=== PATIENT | male | born 1965 | race Caucasian/White ===

== ENCOUNTER → 2021-09-28 10:47 | Outpatient (CLI) | payer OTHER, SELFPAY ==
--- NOTE | ~2021-09-28 | CT_ITS ---
EXAMINATION: CT pelvis w con DATE: 09/28/2021 11:20 INDICATION: Intermittent left lower quadrant abdominal pain. TECHNIQUE: High resolution computed tomography (CT) of the pelvis was performed with 100 mL Omnipaque -350 intravenous contrast. Additional sagittal and coronal reconstructions were performed. Automated exposure control and iterative reconstruction technique were employed. The dose-length product was 60 5.39 mGy-cm. COMPARISON: None FINDINGS: Bilateral moderate-sized fat-containing inguinal hernias. The proximal sigmoid colon extends across a nd is deviated towards but does not extend within the orifice of the left inguinal hernia. There appe ars to be mild wall thickening along the more distal sigmoid colon. Bladder is normal. No free fluid in the pelvis. No pathologically enlarged pelvic or inguinal lymphadenopathy. Mild bilateral hip and sacroiliac osteoarthritis. Additional lumbar facet osteoarthritis, severe on the left at L5-S1, moder ate on the right at L4-L5 and L5-S1 and mild bilaterally at L3-L4 and on the left at L4-L5. Tiny bone islands at the bilateral femoral heads. IMPRESSION: 1. Mild wall thickening along the sigmoid colon which could be due to colitis either infectious, infl ammatory or ischemic in etiology. 2. Moderate-sized bilateral fat-containing inguinal hernias. Reviewed, dictated and finalized at location B. IMPRESSION: 1. Mild wall thickening along the sigmoid colon which could be due to colitis e ither infectious, inflammatory or ischemic in etiology. 2. Moderate-sized bilateral fat-containing inguinal hernias.
== END ==
PROVIDERS: PCP Family Medicine; Visit Provider Physician Assistant Medical
DX: R10.32 Left lower quadrant pain (principal); K40.20 Bilateral inguinal hernia, without obstruction or gangrene, not specified as recurrent
CPT/HCPCS: 72193; Q9967

== ENCOUNTER 2021-10-01 01:50 | Day surgery (SDC) | payer OTHER, SELFPAY ==
[2021-09-21 14:18] VITALS: BMI 30.7
[2021-10-01 11:20] VITALS: BP 129/86; PULSE 70; RESP 16; TEMP 36.4; O2SAT 100; BMI 30.3
--- NOTE | 2021-10-01 11:34 | WPDGICN ---
Assessment and Plan Assessment and plan (1) Screening for colon cancer: Code(s): Z12.11 - Encounter for screening for malignant neoplasm of colon Status: Acute Assessment and Plan: Patient presents for colon cancer screening. By colonoscopy. He has a prior history of colon polyps in 2016. Plan is for colonoscopy now and consider this at 5 year intervals in the future. GI Consult Note Consult date/time: 10/01/21 11:34 HPI: Frankie Chavez Jr. is a 55 year old male Presents for screening colonoscopy. Patient reports his current weight appetite bowel movements are normal. He has a prior history of colon polyps identified by Dr. Wolf in 2016. Patient reports his current bowel habits are normal. He has rather vague lower abdominal pain he reports recent CT scan confirmed bilateral inguinal hernias for which she is to see a surgeon. He denies any blood in his stools, his bowel habits are normal. Review of Systems Review of Systems: All systems reviewed & are unremarkable except as noted in HPI and below PMFSH Past Medical History Medical History BMI 31.0-31.9,adult BMI 33.0-33.9,adult BPH with urinary obstruction Chronic cough Colon polyp Screening for lipid disorders Screening for prostate cancer Surgical History Surgical History H/O knee surgery Hx of carpal tunnel repair Family History Family History Father Hypertension Mother Sibling No problems noted. Social History Social History Second hand tobacco smoke exposure: Yes Alcohol intake: never Substance use: never Substance use type: does not use Living arrangements: with family Additional occupation/education comments: [employer] Gender identity (if verbalized by the patient): Male Meds Home Medications and Allergies Home Medications Medication Instructions Recorded Confirmed Type amoxicillin 875 mg-potassium 1 tablet PO BID 7 Days #14 tablet 09/28/21 10/01/21 Rx clavulanate 125 mg tablet Allergies Allergy/AdvReac Type Severity Reaction Status Date / Time No Known Allergies Allergy Verified 10/01/21 11:29 Vital Signs Vital Signs - 24 hr 10/01/21 11:20 Temperature 97.6 F Pulse Rate 70 Respiratory Rate 16 Blood Pressure 129/86 Pulse Oximetry 100 Exam Narrative: Physical exam reveals patient be alert. Vital signs stable. HEENT exam is unremarkable. Patient is anicteric. Lungs are clear to auscultation and percussion. Heart is without murmur or extra sounds. Abdominal exam bowel sounds present soft nontender with no organomegaly. Digital external rectal exam is normal.
[2021-10-01] MEDS: LACTATED RINGERS 1,000 ML 150 ML IV CONT (11:47)
--- NOTE | 2021-10-01 12:36 | P.PNAN_ITS ---
Anes - Initial Pre Proc Eval Procedure: Operation Date: 10/01/21 12:30 Proposed Procedures p Screening Colonoscopy - Pedro Luis Casarez MD Date/Time: 10/01/21 12:36 Surgeon: Pedro Luis Casarez MD Pre Op Diagnosis: hx of colon polyps Patient Data Age: 55 Gender: M Height: 1.78 m Weight: 96 kg Last Vital Signs Temp 97.6 F 10/01/21 11:20 Pulse 70 10/01/21 11:20 Resp 16 10/01/21 11:20 BP 129/86 10/01/21 11:20 Pulse Ox 100 10/01/21 11:20 Allergies Allergy/AdvReac Type Severity Reaction Status Date / Time No Known Allergies Allergy Verified 10/01/21 11:29 Home Medications Medication Instructions Recorded Confirmed Type amoxicillin 875 mg-potassium 1 tablet PO BID 7 Days #14 tablet 09/28/21 10/01/21 Rx clavulanate 125 mg tablet Patient hx anesthesia problems: none Family hx anesthesia problems: none Results Review: All pre-operative results and documents have been reviewed as part of the pre-operative evaluation. [facility] Past Medical History Medical History BMI 31.0-31.9,adult BMI 33.0-33.9,adult BPH with urinary obstruction Chronic cough Colon polyp Screening for lipid disorders Screening for prostate cancer Surgical History Surgical History H/O knee surgery Hx of carpal tunnel repair Family History Family History Father Hypertension Mother Sibling No problems noted. 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 Informed Consent: The patient's anesthetic plan and its attendant risks and benefits were discussed with the patient/family/POA. Questions were solicited and answers provided to the satisfaction of the patient/family/POA.
[2021-10-01 12:48] VITALS: BP 117/79; PULSE 67; RESP 17; O2SAT 98
[2021-10-01 12:58] VITALS: BP 126/84; PULSE 74; RESP 21; O2SAT 100
[2021-10-01 13:08] VITALS: BP 124/82; PULSE 62; RESP 20; O2SAT 100
== END 2021-10-01 13:15 | disposition home or self-care (01) ==
PROVIDERS: PCP Family Medicine; Visit Provider Internal Medicine Gastroenterology
PROC: 0DJD8ZZ Inspection of Lower Intestinal Tract, Via Natural or Artificial Opening Endoscopic (ICD-10-PCS; CPT 45378; principal; 2021-10-01 12:30)
DX: Z12.11 Encounter for screening for malignant neoplasm of colon (principal); Z86.010 Personal history of colon polyps; K64.8 Other hemorrhoids; N40.1 Benign prostatic hyperplasia with lower urinary tract symptoms; E66.9 Obesity, unspecified; Z68.30 Body mass index [BMI] 30.0-30.9, adult
CPT/HCPCS: 45378; J2704; J7120

== ENCOUNTER 2021-12-11 08:34 | Outpatient (CLI) | payer OTHER, SELFPAY | END 2021-12-11 08:35 | disposition home or self-care (01) | LOC: ANHSURGERY 08:38 | PROVIDERS: PCP Family Medicine; Visit Provider Surgery | DX: Z01.818 Encounter for other preprocedural examination (principal); K40.20 Bilateral inguinal hernia, without obstruction or gangrene, not specified as recurrent | CPT/HCPCS: 36415; 86850; 86900; 86901 ==

== ENCOUNTER 2021-12-15 00:39 | Day surgery (SDC) | payer OTHER, SELFPAY ==
[2021-12-08 14:54] VITALS: BMI 30.7
--- NOTE | 2021-12-08 15:04 | PC.NURSE ---
Report to the Outpatient Waiting Room, entrance under the green pavilion located off [facility], at time _0600__ on date _12/15/21__. OR Time: 0730___- You and your visitor will be asked a series of questions to screen for COVID 19 for your protection. - Only one visitor is allowed at this time. IF YOUR SURGERY TIME IS CHANGED, WE WILL CALL YOU ON Tuesday12/14/21 AFTERNOON - The patient visitor is requested to leave or wait in car when not with patient. - A mask is required within the hospital. Patients may have clear liquids (water, carbonated beverages, clear teas, apple juice) until 3 hours prior to surgery with a maximum of 20 ounces. - No food from midnight until time of surgery YOU MAY HAVE CLEAR LIQUIDS UNTIL 0430 THE MORNING OF YOUR PROCEDURE Take the following medications with a SIP of water the morning of surgery: _N/A Medications to discontinue per physician N/A Date to take last dose_N/A Please no make-up, nail peruvian, hairspray, perfume, deodorant, or body powder the day of surgery. No jewelry (including any body piercings) or valuables the day of surgery, leave them at home. Please take a shower or bath the night before, or the morning of, surgery with an antibacterial soap (HIBICLENS OR CHLORHEXIDINE GLUCONATE LIQUID SOAP) Wear comfortable, loose fitting clothing. - Jewelry must be removed prior to entering the operating room. Rings and piercings that are not removed may be cut off. - The hospital will not accept responsibility for valuables. - Please leave all valuables, including medications, at home the day of surgery. If you are going home after surgery, a licensed petroleum transport driver must drive you home. - NO public transportation without another adult. - We recommend that an adult stay with you for 24 hours following discharge. - We also recommend that you do not drive, make important decision, drink alcoholic beverages, or take any drugs that were not prescribed by your health care provider for at least 24 hours after your discharge time. Follow any additional instructions given to you from your surgeon. If you or anyone in your household have experienced Covid symptoms in the past week, please notify your surgeon or the nurse liaison at the phone number below for possible testing. Telephone instructions given to __ALBERT and asked if any additional questions and then verbalized understanding. Patient advised to call surgeon office or pre surgery nurse liaison [phone] if any additional questions.
--- NOTE | 2021-12-14 12:51 | P.PNAN_ITS ---
Anes - Initial Pre Proc Eval Procedure: Operation Date: 12/15/21 07:30 Proposed Procedures p Laparoscopic Bilateral Inguinal Hernia Repair with Mesh, DaVinci Assisted - Garrett Bone DO Date/Time: 12/14/21 12:51 Surgeon: Garrett Bone DO Pre Op Diagnosis: Frandy Ing Hernia Patient Data Age: 56 Gender: M Height: 1.78 m Weight: 97 kg Allergies Allergy/AdvReac Type Severity Reaction Status Date / Time No Known Allergies Allergy Verified 10/13/21 11:11 Home Medications Medication Instructions Recorded Confirmed Type No Home Medications 10/06/21 12/08/21 History Patient hx anesthesia problems: none Family hx anesthesia problems: none Results Review: All pre-operative results and documents have been reviewed as part of the pre- operative evaluation. [facility] Past Medical History Medical History BMI 31.0-31.9,adult BMI 33.0-33.9,adult BPH with urinary obstruction Chronic cough Colon polyp Screening for lipid disorders Screening for prostate cancer Surgical History Surgical History H/O knee surgery Hx of carpal tunnel repair Family History Family History Father Hypertension Mother Diabetes mellitus COPD (chronic obstructive pulmonary disease) Sibling Patient's sister is in good health Social History Social History Smoking status: Never smoker Second hand tobacco smoke exposure: Yes Alcohol intake: current Alcohol use details: social Substance use: never Substance use type: does not use 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 Informed Consent: The patient's anesthetic plan and its attendant risks and benefits were discussed with the patient/family/POA. Questions were solicited and answers provided to the satisfaction of the patient/family/POA.
[2021-12-15] VITALS (8 sets, daily range): BP systolic 118–138; BP diastolic 76–85; PULSE 70–82; RESP 12–14; TEMP 36.2–36.6; O2SAT 97–100; BMI 31.1
--- NOTE | 2021-12-15 06:47 | P.PNAN_ITS ---
Anes - Initial Pre Proc Eval Procedure: Operation Date: 12/15/21 07:30 Proposed Procedures p Laparoscopic Bilateral Inguinal Hernia Repair with Mesh, DaVinci Assisted - Garrett Bone DO Date/Time: 12/15/21 06:47 Surgeon: Garrett Bone DO Pre Op Diagnosis: Frandy Ing Hernia Patient Data Age: 56 Gender: M Height: 1.78 m Weight: 97 kg Allergies Allergy/AdvReac Type Severity Reaction Status Date / Time No Known Allergies Allergy Verified 10/13/21 11:11 Home Medications Medication Instructions Recorded Confirmed Type No Home Medications 10/06/21 12/08/21 History Patient hx anesthesia problems: none Family hx anesthesia problems: none Results Review: All pre-operative results and documents have been reviewed as part of the pre- operative evaluation. [facility] Past Medical History Medical History BMI 31.0-31.9,adult BMI 33.0-33.9,adult BPH with urinary obstruction Chronic cough Colon polyp Screening for lipid disorders Screening for prostate cancer Surgical History Surgical History H/O knee surgery Hx of carpal tunnel repair Family History Family History Father Hypertension Mother Diabetes mellitus COPD (chronic obstructive pulmonary disease) Sibling Patient's sister is in good health Social History Social History Smoking status: Never smoker Second hand tobacco smoke exposure: Yes Alcohol intake: current Alcohol use details: social Substance use: never Substance use type: does not use Living arrangements: with family 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 Informed Consent: The patient's anesthetic plan and its attendant risks and benefits were discussed with the patient/family/POA. Questions were solicited and answers provided to the satisfaction of the patient/family/POA.
[2021-12-15] MEDS: KETOROLAC 15 MG/ML VIAL (*BKC) IV PUSH (06:50)
[2021-12-15] MEDS: ACETAMINOPHEN 500 MG TABLET 1000 MG PO (06:50)
[2021-12-15] MEDS: LACTATED RINGERS 1,000 ML 30 ML IV CONT ×2 (07:02→09:33)
--- NOTE | 2021-12-15 07:06 | WPDHPUPDATE1 ---
History and Physical Update Update Date/Time: 12/15/21 07:06 History and Physical has been reviewed, including an updated exam of the patient. There are NO changes in the patient's condition. Risks, benefits, and alternatives have been discussed and questions answered. Patient agrees to proceed with procedure.
--- NOTE | 2021-12-15 07:07 | PM.IMHP ---
H&P: HPI History of Present Illness Date/Time: 12/15/21 07:07 Chief Complaint: Bilateral inguinal hernia Narrative: 56 yo man presents for bilateral inguinal hernia repair. He denies any changes since last seen in office. Review of Systems Review of Systems: All systems reviewed & are unremarkable except as noted in HPI and below Constitutional: Constitutional: Denies chills, Denies fever(s), Denies headache(s) and Denies weight loss Eyes: Eyes: Denies change in vision ENT: Denies dizziness, Denies headache(s), Denies neck mass and Denies throat swelling Cardiovascular: Cardiovascular: Denies chest pain, Denies lightheadedness and Denies dyspnea Respiratory: Respiratory: Denies cough, Denies dyspnea and Denies wheezing Gastrointestinal: Gastrointestinal: Denies abdominal pain, Denies change in bowel habits, Denies nausea and Denies vomiting Genitourinary: Genitourinary: Denies hematuria and Denies dysuria Musculoskeletal: Musculoskeletal: Reports as per HPI Integumentary/Breasts: Skin/Breast: Reports as per HPI Neurologic: Denies dizziness and Denies headache(s) Allergic/Immunologic: Allergic/Immunologic: Denies throat swelling and Denies wheezing [facility] Past Medical History Medical History BMI 31.0-31.9,adult BMI 33.0-33.9,adult BPH with urinary obstruction Chronic cough Colon polyp Screening for lipid disorders Screening for prostate cancer Surgical History Surgical History H/O knee surgery Hx of carpal tunnel repair Family History Family History Father Hypertension Mother Diabetes mellitus COPD (chronic obstructive pulmonary disease) Sibling Patient's sister is in good health Social History Social History Smoking status: Never smoker Second hand tobacco smoke exposure: Yes Alcohol intake: current Alcohol use details: social Substance use: never Substance use type: does not use Living arrangements: with family 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 Gender identity (if verbalized by the patient): Male Spiritual care concerns: No Meds Home Medications and Allergies Home Medications Medication Instructions Recorded Confirmed Type No Home Medications 10/06/21 12/15/21 History Allergies Allergy/AdvReac Type Severity Reaction Status Date / Time No Known Allergies Allergy Verified 12/15/21 06:53 Vital Signs Vital Signs - 24 hr 12/15/21 06:58 Temperature 36.5 C Pulse Rate 73 Respiratory Rate 14 Blood Pressure 132/85 Pulse Oximetry 97 Oxygen Delivery Room Air Exam Const: General: no acute distress and alert Orientation/consciousness: patient oriented x3 HENMT: Head: normocephalic and atraumatic Ears: hearing grossly normal bilaterally General nose exam: Normal nares present Mouth: Yes Normal oral and palatal mucosa present Eyes: Periorbital: periorbital findings normal Sclera: sclerae normal EOM: EOMs intact bilaterally Neck: Neck: normal visual inspection, no lymphadenopathy and trachea midline Chest: Chest palpation & inspection: normal inspection of the chest Resp: Effort & Inspection: normal respiratory effort Auscultation: clear to auscultation bilaterally Cardio: Jugular venous distension: no JVD Rate: regular rate Rhythm: regular rhythm Heart sounds: S1 normal heart sound present and S2 normal heart sound present Peripheral pulses: Peripheral pulses 2+ throughout GI: Inspection: normal to inspection GI Palp: Yes Soft to palpation, No Tenderness to palpation present (GI), No Guarding due to palpation present (GI) and No Rebound tenderness present Percussion: Yes normal to percussion Auscultation: normal bowel sounds : General: Yes no CVA tenderness Scr
[2021-12-15] MEDS: ceFAZolin 2 GM/D5W 50 ML 2 GM/50 ML BAG IVPB (07:27)
[2021-12-15] MEDS: LIDO 1%/EPINEPHRINE/PF 1:200,000 30 ML VIAL XX (08:09)
--- NOTE | 2021-12-15 09:07 | W.PM.PROC2 ---
Procedure Note - Detailed Date of Procedure 12/15/21 Pre-op Diagnosis Frandy Ing Hernia Post-op Diagnosis Same (bilateral indirect inguinal hernia) Procedure Performed Laparoscopic bilateral inguinal hernia repair with mesh, da Truman assisted Surgeon Garrett Bone DO Anesthesia General and Local (0.5% bupivacaine with epinephrine) Indications This is a 56-year-old man who presented with left groin pain and a bulge that he 1st noticed about 4 months ago. He was having more symptoms from this was sent for CT. This showed evidence of a bilateral inguinal hernia with the left slightly larger than right. He was noted to have easily palpable reducible hernias on exam. Discussions were made with the patient on treatment options and decision was made to proceed with robotic assisted laparoscopic bilateral inguinal hernia repair with mesh. Findings Laparoscopic bilateral inguinal hernia repair was performed. A robotic transabdominal preperitoneal approach was utilized. The patient was found to have bilateral indirect inguinal hernias. The left side was slightly larger than the right. After carefully creating a preperitoneal plane on each side and reducing the hernia sac, a large 3DMax mid mesh was placed on each side overlying the entire myopectineal orifice. No specimens were obtained for pathology. Description of Procedure Procedure as well as risks, benefits, and alternatives were discussed with the patient. Written consent was obtained and placed in chart prior to procedure. Patient was brought back to surgical suite. He was placed supine on operating table. Time-out was done to confirm patient and procedure. He was then intubated by Anesthesia Department. His abdomen was prepped and draped in sterile fashion using chlorhexidine prep. 0.5% bupivacaine with epinephrine was infiltrated at each location for incision. An 8 mm incision was made in the left lateral abdomen, and a 5 mm Optiview trocar was advanced through the abdominal layers under direct visualization. Once inside the abdominal cavity, carbon dioxide insufflation was used to create a pneumoperitoneum. A camera was inserted and the abdominal cavity was inspected. The patient was placed in slight Trendelenburg position. An 8 millimeter incision was made on the right lateral abdomen and an 8 millimeter trocar was inserted under direct visualization. Another 8 millimeter incision was made just superior to the umbilicus and an 8 millimeter trocar was inserted under direct visualization. The 5 mm port was then removed and this was replaced with another 8 mm robotic port. The robotic arms were brought up to the patient's bedside and secured to the ports. The camera and instruments were inserted. I then moved over to the robotic console and took control of the camera and instruments. After careful inspection of the abdominal cavity, I began scoring the peritoneum along the left lower quadrant using scissors with electrocautery. The preperitoneal plane was entered and this was carefully dissected caudally along the inferior epigastric vessels. Careful dissection with scissors with electrocautery and blunt dissection was used to continue this dissection. I dissected far enough laterally to allow for mesh placement, and also dissected medially to identify the pubic arch and Bal's ligament. The hernia sac was identified and carefully dissected posteriorly. The cord contents were also identified and the peritoneum was carefully dissected far enough posteriorly to allow for mesh placement. Once an adequate pocket was created, I then placed the mesh within the preperitoneal pocket and carefully unfolded it. The mesh was centered on the hernia defect with adequate overlap circumferentially. The inferior edge of the mesh was inspected to ensure that it was far enough away from the peritoneal edge. The mesh appeared in proper position overlying the entire myopectineal orifice. The mesh was secured
--- NOTE | 2021-12-15 09:28 | SUR.PHASEI ---
oral airway removed at 0924
[2021-12-15] MEDS: oxyCODONE HCL (*CRX) 5 MG TAB IR PO (10:33)
== END 2021-12-15 11:30 | disposition home or self-care (01) ==
PROVIDERS: PCP Family Medicine; Visit Provider Surgery
PROC: 8E0Y4CZ Robotic Assisted Procedure of Lower Extremity, Percutaneous Endoscopic Approach (ICD-10-PCS; CPT 49650; principal; 2021-12-15 07:30)
DX: K40.20 Bilateral inguinal hernia, without obstruction or gangrene, not specified as recurrent (principal); E66.9 Obesity, unspecified; Z68.31 Body mass index [BMI] 31.0-31.9, adult
CPT/HCPCS: 49650; S2900; 36415; 86850; 86900; 86901; A9270; C1781; J0690; J1100; J1885; J2250; J2370; J2405; J2704; J2710; J3010; J7030; J7120

== ENCOUNTER 2024-04-04 11:26 | Observation (INO) | payer OTHER, SELFPAY ==
[2024-04-04] VITALS (11 sets, daily range): BP systolic 136–152; BP diastolic 78–95; PULSE 65–83; RESP 14–20; TEMP 36.4–37; O2SAT 92–100
--- NOTE | ~2024-04-04 | CT_ITS ---
EXAMINATION: CT brain wo con DATE: 04/04/2024 11:42 INDICATION: Cerebrovascular accident. TECHNIQUE: Computed tomography (CT) of the head was performed without intravenous contrast. The mA wa s adjusted according to patient size. Iterative reconstruction technique was employed. The dose-lengt h product was 605.33 mGy-cm. COMPARISON: None FINDINGS: There is an old infarct in right cerebellum. There is no intracranial hemorrhage, acute inf arction, or abnormal intracranial mass lesion. The ventricles are normal in size. The orbits are norm al. There is mucosal thickening in the paranasal sinuses. The mastoid air cells are normal. IMPRESSION: 1. 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 Reviewed, dictated and finalized at location A.
--- NOTE | ~2024-04-04 | MR_ITS ---
EXAMINATION: MR brain/brain stem wo/w con DATE: 04/05/2024 10:11 INDICATION: Transient ischemic attack. TECHNIQUE: Magnetic resonance imaging (MRI) of the brain and brainstem was performed without and with 20 mL MultiHance intravenous contrast. COMPARISON: Head CT 04/04/2024 FINDINGS: There is an old infarct in right cerebellum. There are scattered areas of nonspecific incre ased T2-weighted signal intensity in the cerebral white matter, which is within normal limits for the patient's age. There is no intracranial hemorrhage, acute infarction, or abnormal intracranial mass lesion. The ventricles are normal in size. The orbits are normal. There is mild mucosal thickening in the paranasal sinuses. The mastoid air cells are normal. IMPRESSION: 1. 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 Reviewed, dictated and finalized at location A.
--- NOTE | ~2024-04-04 | CT_ITS ---
CT ANGIOGRAM NECK AND HEAD History: CVA. Technique: Serial spiral axial images through the head and neck were obtained during arterial phase I V injection of 100 cc of Omnipaque 350. 3-D postprocessing and MIP images were then reconstructed on the remote workstation. Dose reduction technique was used on this scan by utilizing automated exposur e control and iterative reconstruction technique. The dose-length product (DLP) was 1056.24 mGy-cm. CTA neck findings: Bilateral vertebral arteries are patent. Bilateral common carotid, internal carot id, and external carotid arteries are patent. No significant stenosis. No large vessel occlusion. No aneurysm. The proximal right internal carotid artery demonstrates 0% stenosis relative to the normal distal artery lumen diameter. The proximal left internal carotid artery demonstrates 0% stenosis rela tive to the normal distal artery lumen diameter. CTA head findings: Distal vertebral arteries, basilar artery, and posterior cerebral arteries are pat ent. Distal internal carotid arteries, middle cerebral arteries, and anterior cerebral arteries are p atent. No significant stenosis. No large vessel occlusion. No aneurysm. Impression: No significant abnormality seen. Reviewed, dictated and finalized at location . Impression: No significant abnormality seen.
--- NOTE | ~2024-04-04 | XR_ITS ---
EXAMINATION: XR chest 1V portable DATE: 04/04/2024 12:07 INDICATION: Cerebrovascular accident. TECHNIQUE: A single frontal view of the chest was obtained. COMPARISON: None. FINDINGS: Calcified left lung nodules and calcified left hilar lymph nodes are consistent with old gr anulomatous disease. No pleural effusion or pneumothorax. The heart size is normal. IMPRESSION: 1. No acute cardiopulmonary disease. Reviewed, dictated and finalized at location A.
--- NOTE | 2024-04-04 11:31 | ECG_ITS ---
Test Date: 2024-04-04 11:55:10 Measurements Intervals [place] Rate: 71 P: 47 ME: 144 QRS: 48 QRSD: 101 T: 3 QT: 379 QTc: 414 Interpretive Statements SINUS RHYTHM WITH OCCASIONAL VENTRICULAR PREMATURE COMPLEXES LOW-VOLTAGE QRS BORDERLINE ECG No previous ECG available for comparison Electronically Signed On 04-05-2024 07:47:03 CDT by Jose D Quezada M.D.
[2024-04-04 11:35] LABS: Glucose Point of Care 88 mg/dl (65-105)
[2024-04-04 11:41] LABS: Estimated CRCL calculation 82 ml/min; Estimated Glomerular Filt Rate > 60
[2024-04-04 11:55] LABS: Basophils Percent Auto 0.4 % (0.2-1.2); Eosinophils Absolute Auto 0.1 K/mm3 (0-0.3); Eosinophils Percent Auto 1.5 % (0-4.4); Hematocrit 47.5 % (42.0-52.0); Hemoglobin 16.5 g/dL (14.0-18.0); Immature Granulocyte Absolute 0.05 K/mm3 (0.00-0.031); Immature Granulocyte Percent A 0.6 % (0-0.5); Lymphocytes Absolute Auto 1.85 K/mm3 (0.9-3.2); Lymphocytes Percent Auto 22.6 % (18.3-44.2); Mean Corpuscular HGB Conc 34.7 g/dl (32-36); Mean Corpuscular Hemoglobin 34.1 pg (26-34); Mean Corpuscular Volume 98.1 fl (80-100); Mean Platelet Volume 10.9 fl (7.4-10.4); Monocytes Absolute Auto 0.7 K/mm3 (0.1-0.6); Monocytes Percent Auto 8.5 % (2.6-8.5); Neutrophils Absolute Auto 5.5 K/mm3 (1.3-6.7); Neutrophils Percent Auto 66.4 % (45.5-73.1); Platelet Count Result 167 k/mm3 (150-375); Red Blood Count 4.84 M/mm3 (4.6-6.20); White Blood Count 8.2 K/mm3 (4.5-10.0)
[2024-04-04 12:06] LABS: Alanine Aminotransferase 31 U/L (6-50); Albumin Level 4.5 g/dL (3.5-5.1); Alkaline Phosphatase 71 U/L (38-126); Anion Gap 9 mmol/L (4-12); Aspartate Amino Transferase 28 U/L (17-59); Bilirubin,Total 1.1 mg/dL (0.2-1.3); Blood Urea Nitrogen 19 mg/dL (9-20); Calcium 9.5 mg/dL (8.4-10.2); Carbon Dioxide 25 mmol/L (22-30); Chloride 105 mmol/L (98-107); Estimated CRCL calculation 91 ml/min; Estimated Glomerular Filt Rate > 60; Glucose 100 mg/dL (65-110); Potassium 4.1 mmol/L (3.4-5.0); Sodium 139 mmol/L (137-145)
[2024-04-04 12:07] LABS: Prothrombin Time 13.6 Seconds (11.1-14.7)
[2024-04-04 12:08] LABS: Partial Thromboplastin Time 29.8 Seconds (22.3-36.8)
[2024-04-04 12:16] LABS: Troponin I < 0.012 ng/mL (0.000-0.034)
--- NOTE | 2024-04-04 13:09 | ED.NEUROSD ---
HPI - Neuro Symptoms/Deficit General Chief Complaint: Suspected CVA Stated Complaint: changes in gait Time Seen by Provider: 04/04/24 11:32 History of Present Illness HPI Narrative: patient is a 58-year-old male who presents ER with stroke-like symptoms. He was at work when he began having difficulty using his right arm and when he walked to fall to left side. He had slurred speech. This lasted for 5 minutes and resolved by the time EMS arrived. Denies history of previous stroke. No recent trauma. Has had increased stress at work. He is on no blood thinning medication but does take tadalafil and Flomax. Stroke scale 0 this time. Related Data Home Medications Medication Instructions Recorded Confirmed tadalafil 5 mg tablet 5 mg DAILY PRN BPH 04/04/24 04/04/24 tamsulosin 0.4 mg capsule 0.4 mg PO HS 04/04/24 04/04/24 Allergies Allergy/AdvReac Type Severity Reaction Status Date / Time No Known Allergies Allergy Verified 04/04/24 16:13 Review of Systems Review of Systems: All systems reviewed & are unremarkable except as noted in HPI and below Constitutional: Constitutional: Reports no additional constitutional complaints ENT: Reports system reviewed and no additional complaints, except as documented Cardiovascular: Cardiovascular: Reports no additional cardiovascular complaints Respiratory: Respiratory: Reports no additional respiratory complaints Gastrointestinal: Gastrointestinal: Reports no additional gastrointestinal complaints Musculoskeletal: Musculoskeletal: Reports no additional musculoskeletal complaints [facility] Past Medical History Medical History (Updated 04/04/24 @ 18:59 by Miguel Zhang MD) Benign prostatic hyperplasia Chronic cough Colon polyp Hyperlipidemia Surgical History Surgical History (Updated 04/04/24 @ 15:38 by Cici Mulligan PA-C) History of bilateral inguinal hernia repair (12/2021) History of carpal tunnel release History of colonoscopy with polypectomy History of knee surgery Family History Family History Father Hypertension Mother Diabetes mellitus COPD (chronic obstructive pulmonary disease) Sibling Patient's sister is in good health Social History Social History (Updated 04/04/24 @ 15:38 by Cici Mulligan PA-C) Social History: Surrogate medical decision maker: Ofe Chavez, spouse. Code status: Full code. Smoking status: Never smoker Second hand tobacco smoke exposure: No Alcohol intake: never Alcohol use details: Social alcohol use in moderation. Substance use: never Substance use type: does not use Do You Feel Safe in your Home?: Yes Lack of Transportation: No Lack of Food: Never True Current Housing: I Have Housing Concerned About Future Housing: No Difficulty Paying Gas/Electric Bills: No Difficulty Paying for Meds: No Currently Unemployed: No Education: Associate Degree Difficulty w/ Childcare or Family Care: No Living arrangements: with family Additional living arrangements comments: Lives with family in [place]. 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 Spiritual care concerns: No Exam Narrative: GENERAL: Well-appearing, well-nourished, and in no acute distress. HEAD: Normocephalic, atraumatic. EYES: PERRL and EOMI. ENT: Mucous membranes moist. CHEST: Clear to auscultation. No respiratory distress. HEART: Regular rate and rhythm. Normal peripheral pulses. ABDOMEN: Soft, nontender, nondistended. EXTREMITIES: Normal range of motion. No edema. SKIN: Warm, dry, no rash. NEURO: No focal deficits. Alert and oriented x3. PSYCH: Normal mood and affect. Course Course Emergency Course: Patient resting comfortably. Informed. ASA here. Admit to hospitalist service. Will need MRI and neuro consult home. Vital Signs Vital signs: Vital Signs Tem
[2024-04-04] MEDS: ASPIRIN 325 MG TABLET PO (14:43)
--- NOTE | 2024-04-04 15:30 | PC.NURSE ---
Admitted to room 252. Oriented to room. Call light in reach.
--- NOTE | 2024-04-04 15:35 | PM.IMHP ---
H&P: HPI History of Present Illness Date/Time: 04/04/24 15:35 Chief Complaint: Neurologic symptoms. Narrative: This is a very pleasant 58-year-old male with benign prostatic hyperplasia and dyslipidemia no longer on a statin due to muscle cramps/weakness who presented to the emergency department via for evaluation of neurologic symptoms. The patient provides the following history. He has been under lot of stress recently at work and has not slept well the last 3 nights. 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 About 45 minutes prior to arrival he was handed a car part weighing only few pounds and he proceeded to drop that part 3 times due to lack of coordination. He then stood up and tried to walk across the shop and he felt off balance, as though he was being pulled to the left. Staff helped him to his office and noticed that his speech was slurred. The patient also reports that his vision was a bit off and he just felt funny. Symptoms resolved within 5 minutes and have not returned. He has never had similar symptoms. At this time he denies vertigo, focal weakness, paresthesias, difficulty speaking and swallowing, and vision changes. He also denies chest pain, palpitations, and sensations of racing heart. In the ED: Blood pressure was 152/92 on arrival. He has been in a sinus rhythm. CMP and CBC were pretty unremarkable. His head and neck CTA showed no significant abnormalities. 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 Chest x-ray showed no acute cardiopulmonary disease. He was given aspirin 325 mg x 1 is being admitted in this setting for close monitoring and neurology consultation. Review of Systems Review of Systems: 12 systems were reviewed and are negative except for as per HPI. [facility] Past Medical History Medical History Benign prostatic hyperplasia Chronic cough Colon polyp Hyperlipidemia Surgical History Surgical History History of bilateral inguinal hernia repair (12/2021) History of carpal tunnel release History of colonoscopy with polypectomy History of knee surgery Family History Family History Father Hypertension Mother Diabetes mellitus COPD (chronic obstructive pulmonary disease) Sibling Patient's sister is in good health Social History Social History Social History: Surrogate medical decision maker: Ofe Chavez, spouse. Code status: Full code. Smoking status: Never smoker Second hand tobacco smoke exposure: No Alcohol intake: never Alcohol use details: Social alcohol use in moderation. Substance use: never Substance use type: does not use Do You Feel Safe in your Home?: Yes Lack of Transportation: No Lack of Food: Never True Current Housing: I Have Housing Concerned About Future Housing: No Difficulty Paying Gas/Electric Bills: No Difficulty Paying for Meds: No Currently Unemployed: No Education: Associate Degree Difficulty w/ Childcare or Family Care: No Living arrangements: with family Additional living arrangements comments: Lives with family in [place]. 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 Spiritual care concerns: No Meds Home Medications and Allergies Home Medications Medication Instructions Recorded Confirmed Type tadalafil 5 mg tablet 5 mg DAILY PRN BPH 04/04/24 04/04/24 History tamsulosin 0.4 mg capsule 0.4 mg PO HS 04/04/24 04/04/24 History Allergies Allergy/AdvReac Type Severity Reaction Status Date / Time No Known Allergies Allergy Verified 04/04/24 16:13 Vital Signs Vital Signs - 24 hr 04/04/24 11:29 04/04/24 11:59 04/04/24 11:48 Temperature 97.6 F 97.9 F Pulse Rat
[2024-04-04] MEDS: MELATONIN 5 MG TABLET PO (23:57)
[2024-04-04] MEDS: TAMSULOSIN HCL 0.4 MG CAPSULE PO (23:57)
[2024-04-05] VITALS (10 sets, daily range): BP systolic 116–139; BP diastolic 68–80; PULSE 64–79; RESP 18; TEMP 36.3–36.8; O2SAT 95–98
[2024-04-05 07:37] LABS: Cholesterol 188 mg/dL (0-200); HDL Direct 47 mg/dL; Triglycerides 98 mg/dL (<150)
[2024-04-05 07:48] LABS: LDL Cholesterol Direct 99 mg/dL
[2024-04-05] MEDS: ACETAMINOPHEN 325 MG TABLET 650 MG PO (07:50)
[2024-04-05] MEDS: ASPIRIN 81 MG CHEWABLE TABLET PO (07:50)
--- NOTE | 2024-04-05 14:54 | PM.IMPN ---
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 Start ASA 81 mg qd Heart healthy diet Consult neurology-appreciate recommendations Start rosuvastatin Neuro exam q 4 hrs (2) Hyperlipidemia: Qualifiers: Hyperlipidemia type: unspecified Qualified Code(s): E78.5 - Hyperlipidemia, unspecified Code(s): E78.5 - Hyperlipidemia, unspecified Status: Acute Assessment and Plan: Start rosuvastatin Heart Healthy diet (3) Benign prostatic hyperplasia: Qualifiers: Lower urinary tract symptom presence: symptoms present Lower urinary tract symptom detail: weak urinary stream Qualified Code(s): N40.1 - Benign prostatic hyperplasia with lower urinary tract symptoms; R39.12 - Poor urinary stream Code(s): N40.0 - Benign prostatic hyperplasia without lower urinary tract symptoms Status: Acute Assessment and Plan: Continue tamsulosin Control hypertension heart healthy diet Time Spent With Patient Time with patient: 15 - 25 minutes Subjective Date/time seen: 04/05/24 1015 and 1405 Review of Systems Review of Systems: Pt is alert and oriented x 4 and appears in no acute distress. Visiting with his at bedside. Remembers the event. denies ever having had s/s like this in the past. Denies any MCKENNA or visual changes. 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 All systems reviewed & are unremarkable except as noted in HPI and below Constitutional: Constitutional: Reports as per HPI and Reports no additional constitutional complaints Musculoskeletal: Comments: reminds patient that he occasionally has leg cramps. Neurologic: Comments: Had a brief episode (less than 5 minutes) of slurred speech, left sided weakness yesterday prior to coming to the ED, but none prior or since Exam Narrative: at bedside during exam Const: General: comfortable and no acute distress HENMT: Face/Nose/Sinus: Normal nares present Mouth: Yes moist mucous membranes Eyes: General: appearance normal, both eyes and all related structures Sclera: sclerae normal Pupils: Equal, round and reactive pupils present EOM: EOMs intact bilaterally Neck: Neck: supple and no JVD Other: no carotid bruit appreciated Resp: Effort & Inspection: normal respiratory effort Auscultation: clear to auscultation bilaterally Cardio: Rate: regular rate Rhythm: regular rhythm GI: GI Palp: Yes Soft to palpation Auscultation: normal bowel sounds Skin: General skin exam: normal color and no rashes or lesions noted Neuro: General: gait normal Speech: normal speech Motor exam (neuro): 5/5 motor strength present throughout and Normal motor muscle tone present throughout Extrem: General: normal to inspection Other: No edema noted. Bilateral pedal and posterior tibial pulses palpated and equal. No calf tenderness noted to palpation. Psych: Mental Status: mental status grossly normal Affect: normal affect Objective Data Vital Signs Vital Signs: Vital Signs - 24 hr 04/04/24 15:40 04/04/24 20:00 04/05/24 00:00 Temperature 97.9 F Pulse Rate 65 73 67 Respiratory Rate 18 Blood Pressure 140/84 Pulse Oximetry 100 Oxygen Delivery 04/04/24 19:43 04/05/24 04:00 04/05/24 04:13 Temperature 98.2 F 98.2 F Pulse Rate 71 70 67 Respiratory Rate 18 18 Blood Pressure 136/79 116/68 Pulse Oximetry 98 95 Oxygen Delivery 04/05/24 07:30 04/05/24 08:00 04/05/24 12:00 Temperature Pulse Rate 75 79 Respiratory Rate Blood Pressure Pulse Oximetry 95 Oxygen Deli
--- NOTE | 2024-04-05 15:11 | WPDNEURCNPN ---
Assessment and Plan Assessment and plan (1) Transient cerebral ischemia: Qualifiers: Transient cerebral ischemia type: unspecified Qualified Code(s): G45.9 - Transient cerebral ischemic attack, unspecified Code(s): G45.9 - Transient cerebral ischemic attack, unspecified Status: Acute (2) Hyperlipidemia: Qualifiers: Hyperlipidemia type: unspecified Qualified Code(s): E78.5 - Hyperlipidemia, unspecified Code(s): E78.5 - Hyperlipidemia, unspecified Status: Acute Plan I suggest aspirin, Plavix and statin if possible. Had problem with some statin in the past we can try another 1 to see if this agrees with him. I was not able to ascertain which exactly has led to side effects. I spoke to Mrs. Darshana hospitalist regarding the case and discuss these options. I have reviewed the MRI of the brain that showed infarct in the right cerebellar area. CT angiogram of the head and neck did not show any significant abnormalities. On should investigate possibly a prolonged cardiac monitoring as the possibility of atrial fibrillation will be indeed a consideration since there is old stroke and not a as a TIA. Echocardiogram did not show any abnormalities. Risk factor management is important. One should look into possible sleep apnea syndrome and diabetes mellitus as concurrent risk factors if necessary. To low blood pressure and education about stroke would be helpful. The goal of the treatment should include keeping the LDL under 65 her preferably around 50 as per the most recent recommendations. His LDL was around 99. . Some discussion about it. He is willing to try another statin and low-dose for now. Consult date: 04/05/24 HPI: Frankie Camacho Kathy Gutierrez is a 58 year old male presented to the hospital with onset of ataxia, dysarthria and numbness in the right arm. The symptoms lasted for 15 20 minutes and thereafter resolved. He never had any stroke-like symptoms the past. 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 However he takes care of himself. Patient's was also present at the time of the evaluation. He denies any headache or nausea vomiting or passing out spell. He denies any other spurt and symptoms. Tiffanie previously on statins but that led to some muscle pain and hence he stopped. His mother had diabetes mellitus. Other than that he has no history of stroke or myocardial infarction the family members. Review of Systems Review of Systems: All systems reviewed & are unremarkable except as noted in HPI and below PMFSH Past Medical History Medical History Benign prostatic hyperplasia Chronic cough Colon polyp Hyperlipidemia Surgical History Surgical History History of bilateral inguinal hernia repair (12/2021) History of carpal tunnel release History of colonoscopy with polypectomy History of knee surgery Family History Family History Father Hypertension Mother Diabetes mellitus COPD (chronic obstructive pulmonary disease) Sibling Patient's sister is in good health Social History Social History Social History: Surrogate medical decision maker: Ofe Chavez, spouse. Code status: Full code. Smoking status: Never smoker Second hand tobacco smoke exposure: No Alcohol intake: never Alcohol use details: Social alcohol use in moderation. Substance use: never Substance use type: does not use Do You Feel Safe in your Home?: Yes Lack of Transportation: No Lack of Food: Never True Current Housing: I Have Housing Concerned About Future Housing: No Difficulty Paying Gas/Electric Bills: No Difficulty Paying for Meds: No Currently Unemployed: No Education: Associate Degree D
--- NOTE | 2024-04-05 20:58 | ECHO_ITS ---
Patient Info Name: Frankie Chavez Age: 58 years : 1965 Gender: Male Ht: 70 in Wt: 220 lbs BSA: 2.25 m2 HR: 75 bpm BP: 124 / 66 mmHg Heart Rhythm: Sinus Rhythm Technical Quality: Good Exam Date: 04/05/2024 9:20 AM Exam Location: Echo Lab Patient Status: Inpatient Admit Date: 04/04/2024 Staff Ordering Physician: Cici Mulligan PA-C Fiber Technician: Jessica Luke RDCS Attending Provider: Eliel Cline MD Referring Physician: Ese KRUSE; Exam Type: CA echo doppler w bubble study Study Info Indications - transient neurologic symptoms Complete two-dimensional, color flow and Doppler transthoracic echocardiogram is performed with agitated saline. Summary 1. Left ventricular chamber dimension is normal. 2. Left ventricular systolic function is normal, estimated at 65-70%. 3. The left ventricular diastolic function is normal. 4. E/e' 8 is minimally elevated. 5. There is mild aortic valve sclerosis. 6. No pulmonary hypertension, estimated pulmonary arterial systolic pressure is 14 mmHg. Left Ventricle E/e' 8 is minimally elevated. Left ventricular chamber dimension is normal. Left ventricular systolic function is normal, estimated at 65-70%. The left ventricular diastolic function is normal. Right Ventricle Right ventricular systolic function is normal and with normal TAPSE 3.1 cm. Right ventricular chamber dimension is normal. Left Atria Left atrial chamber dimension is normal. Right Atria Right atrial chamber dimension is normal. Atrial Septum Agitated saline injection with and without valsalva maneuver opacified right side cardiac chambers without shunt to left side cardiac chambers. Intact interatrial septum visualized by 2D and agitated saline imaging. Aortic Valve The aortic valve is trileaflet. There is mild aortic valve sclerosis. There is no aortic valve stenosis. There is no aortic valve regurgitation. Pulmonic Valve There is no pulmonic regurgitation. Mitral Valve There is no mitral valve stenosis. There is no mitral valve regurgitation. Tricuspid Valve There is no tricuspid valve regurgitation. No pulmonary hypertension, estimated pulmonary arterial systolic pressure is 14 mmHg. Pericardium/Pleural There is no pericardial effusion. Inferior Vena Cava Normal inferior vena cava with >50% collapse upon inspiration consistent with normal right atrial pressure, 5 mmHg. Aorta The aortic root size at the sinus of Valsalva is normal. Left Ventricular Outflow Tract Name Value Normal LVOT 2D LVOT Diameter 2.1 cm LVOT Doppler LVOT Peak Gradient 5 mmHg LVOT Mean Gradient 2 mmHg LVOT VTI 24 cm LVOT VTI/AV VTI Ratio 0.9 LVOT Stroke Volume 84 ml LVOT CO 5.3 l/min LVOT CI 2.3 l/min/m2 Pulmonic Valve Name Value Normal PV Doppler
[2024-04-05] MEDS: TAMSULOSIN HCL 0.4 MG CAPSULE PO (21:14)
[2024-04-06] VITALS: PULSE 64
[2024-04-06 00:31] VITALS: BP 139/80; PULSE 65; RESP 18; TEMP 36.9; O2SAT 97
[2024-04-06 04:00] VITALS: PULSE 67
[2024-04-06 04:49] LABS: Magnesium 2.2 mg/dL (1.6-2.3)
[2024-04-06 08:00] VITALS: PULSE 81
[2024-04-06] MEDS: ROSUVASTATIN 5 MG TABLET PO (08:25)
[2024-04-06] MEDS: ASPIRIN 81 MG CHEWABLE TABLET PO (08:25)
[2024-04-06] MEDS: lisinopriL 5 MG TABLET PO (08:25)
[2024-04-06] MEDS: CLOPIDOGREL BISULFATE 75 MG TABLET PO (08:25)
--- NOTE | 2024-04-06 11:43 | PM.DS ---
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 Started on low dose lisinopril. Advised a low sodium, low fat, high fiber, heart healthy diet and a minimum of 30 minutes of brisk walking per day. (3) Hyperlipidemia: Qualifiers: Hyperlipidemia type: unspecified Qualified Code(s): E78.5 - Hyperlipidemia, unspecified Code(s): E78.5 - Hyperlipidemia, unspecified Status: Acute Assessment and Plan: Started low dose rosuvastatin Advised heart healthy diet, weight loss, 30 minutes of brisk walking per day DS: Summary Hospital Course Reason for hospitalization: TIA Hospital Course: Chief Complaint: Neurologic symptoms. Narrative: This is a very pleasant 58-year-old male with benign prostatic hyperplasia and dyslipidemia no longer on a statin due to muscle cramps/weakness who presented to the emergency department via for evaluation of neurologic symptoms. The patient provides the following history. He has been under lot of stress recently at work and has not slept well the last 3 nights. 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 About 45 minutes prior to arrival he was handed a car part weighing only few pounds and he proceeded to drop that part 3 times due to lack of coordination. He then stood up and tried to walk across the shop and he felt off balance, as though he was being pulled to the left. Staff helped him to his office and noticed that his speech was slurred. The patient also reports that his vision was a bit off and he just felt funny. Symptoms resolved within 5 minutes and have not returned. He has never had similar symptoms. At this time he denies vertigo, focal weakness, paresthesias, difficulty speaking and swallowing, and vision changes. He also denies chest pain, palpitations, and sensations of racing heart. In the ED: Blood pressure was 152/92 on arrival. He has been in a sinus rhythm. CMP and CBC were pretty unremarkable. His head and neck CTA showed no significant abnormalities. 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 Chest x-ray showed no acute cardiopulmonary disease. He was given aspirin 325 mg x 1 is being admitted in this setting for close monitoring and neurology consultation. MRI brain showed no acute process, old infact redemonstrated. ECHO essentially negative. Neurology recommends Holter monitor to watch for occult afib, start plavix, statin, and 81 mg ASA. Will start lisinopril 5 mg qd for hypertension. Recommend f/u with PCP and neurology. Recommend heart healthy diet, 30 minutes of brisk walking per day, weight loss. Status at Discharge Cognitive/behavioral status at discharge: Pt is alert and oriented x 4 and appears in no distress Functional status at discharge: independent ambulation Overall status at discharge: patient is back to baseline Time Spent with Patient Time attestation: Total time spent providing and/or coordinating discharge services: Time spent: Less than 30 minutes Exam Narrative: Pt is alert and oriented x 4 and appears in no distress Const: General: comfortable and no acute distress HENMT: Face/Nose/Sinus: Normal nares present Mouth: Yes moist mucous membranes Eyes: General: appearance normal, both eyes and all related structures Sclera: sclerae normal Pupils: Equal, round and reactive pupils present E
[2024-04-06] MEDS: INFLUENZA TRIVALENT VACCINE 45 MCG/0.5 ML SYRINGE IM (13:35)
--- NOTE | 2024-04-09 15:38 | P.PCNHOL_ITS ---
Holter/Event Monitor Holter/Event Monitor Date of procedure: 04/06/24 Holter/Event Procedure: 48 Hr Holter Monitor Indications: TIA Conclusion: 1. 48 hour holter monitor on 04/06/24. 2. Predominant rhythm is sinus rhythm. HR range 50-128 bpm; average HR 72 bpm. 3. There are 925 premature supraventricular complexes, 2 supraventricular couplets and 6 supraventricular trigeminy. There are 5 episodes of atrial tachyc ardia, fastest at 154 bpm and longest lasting 5 beats. 4. There are 1,534 premature ventricular complexes, 10 ventricular bigeminy and 3 ventricular trigeminy. No ventricular tachycardia. 5. No sinoatrial or atrioventricular blocks. No significant pauses greater than 2 seconds. 6. No symptoms available for correlation.
== END 2024-04-06 13:45 | disposition home or self-care (01) ==
LOC: ANHED 13:16 → ANH2MED 16:55
PROVIDERS: Nurse Practitioner Family; Physician Assistant; Admitting Provider Internal Medicine; Emergency Provider Emergency Medicine; PCP Family Medicine; Visit Provider General Practice
DX: G45.9 Transient cerebral ischemic attack, unspecified (principal); R29.700 NIHSS score 0; I10 Essential (primary) hypertension; E78.5 Hyperlipidemia, unspecified; R05.3 Chronic cough; N40.1 Benign prostatic hyperplasia with lower urinary tract symptoms; R39.12 Poor urinary stream; Z23 Encounter for immunization; Z86.0100 Personal history of colon polyps, unspecified; Z86.73 Personal history of transient ischemic attack (TIA), and cerebral infarction without residual deficits; Z79.899 Other long term (current) drug therapy
CPT/HCPCS: 36415; 70450; 70496; 70498; 70553; 71045; 80053; 80061; 82948; 83735; 84484; 85025; 85610; 85730; 90471; 90656; 93005; 93225; 93226; 93306; 96375; 99285; A9270; A9577; G0008; G0378; Q9967